=== PATIENT | male | born 1980 | race Two or more races ===

== ENCOUNTER 2018-04-04 10:58 | Emergency (ER) | payer SELFPAY ==
[~2018-04-04] VITALS: Ht 167.6 cm; Wt 65.8 kg
--- NOTE | 2018-04-04 11:43 | NUR ---
Patient discharged to home in stable conditon. Written and verbal after care instructions given. Patient verbalizes understanding of instructions.
== END 2018-04-04 11:44 | disposition home or self-care (01) ==
LOC: ER 10:58
DX: L25.9 Unspecified contact dermatitis, unspecified cause (principal)
CPT/HCPCS: 99281; A4663